=== PATIENT | male | born 1970 | race Caucasian/White ===

== ENCOUNTER 2021-01-27 08:00 | Outpatient (CLI) | payer OTHER | END 2021-01-27 23:59 | disposition home or self-care (01) | LOC: LAB.R 08:00 | PROVIDERS: ATTEND Physician Assistant | DX: J20.9 Acute bronchitis, unspecified (principal); Z20.822 Contact with and (suspected) exposure to COVID-19 ==

== ENCOUNTER 2021-08-11 16:44 | Outpatient (CLI) | payer OTHER | END 2021-08-11 16:45 | disposition home or self-care (01) | LOC: COV 16:44 | PROVIDERS: ATTEND Internal Medicine Gastroenterology | DX: Z01.812 Encounter for preprocedural laboratory examination (principal); Z20.822 Contact with and (suspected) exposure to COVID-19 ==

== ENCOUNTER 2021-11-14 15:00 | Outpatient (CLI) | payer OTHER ==
[2021-11-14 22:12] LABS: BILIRUBIN,URINE NEGATIVE (NEGATIVE); CLARITY,URINE CLEAR (CLEAR); GLUCOSE, URINE (UA) NEGATIVE (NEGATIVE); KETONES,URINE (UA) NEGATIVE (NEGATIVE); LEUKOCYTE ESTERASE, URINE NEGATIVE (NEGATIVE); NITRITE,URINE NEGATIVE (NEGATIVE); OCCULT BLOOD,URINE NEGATIVE (NEGATIVE); PH,URINE 5.5 PH (5.0-7.5); PROTEIN,URINE NEGATIVE (NEGATIVE); UROBILINOGEN,URINE 0.2 (NORMAL) E.U./dL (NORMAL)
[2021-11-14 22:44] LABS: BACTERIA,URINE Rare /HPF (None Seen); RBC,URINE None Seen /HPF (0-5); SQUAMOUS EPITHELIAL CELL,UR NONE SEEN (<= Few); WBC,URINE 0-3 /HPF (0-3)
== END 2021-11-14 23:59 | disposition home or self-care (01) ==
LOC: LAB.S 15:00
PROVIDERS: ATTEND Physician Assistant Medical
DX: N41.8 Other inflammatory diseases of prostate (principal); R30.9 Painful micturition, unspecified
CPT/HCPCS: 81001; 87086

== ENCOUNTER 2023-08-13 08:00 | Outpatient (CLI) | payer OTHER ==
--- NOTE | 2023-08-13 14:32 | XRAY Report ---
PROCEDURE: Knee 3 View RT INDICATIONS: SPRAIN TO RIGHT KNEE TECHNIQUE: 3 views of the knee(s) were acquired. COMPARISON: None. FINDINGS: Bones: No fractures or dislocations. No suspicious bony lesions. Soft tissues: Small knee joint effusion. No suspicious soft tissue calcifications or masses. IMPRESSION: Small knee joint effusion. No displaced fracture or significant degenerative change. Reviewed by: Black Neely on 08/13/2023 2:31 PM PST Approved by: Black Neely on 08/13/2023 2:31 PM PST Station ID: [id number]
== END 2023-08-13 23:59 | disposition home or self-care (01) ==
LOC: DI.S 08:00
PROVIDERS: ATTEND Physician Assistant Medical
DX: M25.461 Effusion, right knee (principal)

== ENCOUNTER 2023-08-20 08:00 | Outpatient (CLI) | payer OTHER ==
[2023-08-20 20:28] LABS: BILIRUBIN,URINE NEGATIVE (NEGATIVE); GLUCOSE, URINE (UA) NEGATIVE (NEGATIVE); KETONES,URINE (UA) NEGATIVE (NEGATIVE); LEUKOCYTE ESTERASE, URINE NEGATIVE (NEGATIVE); NITRITE,URINE NEGATIVE (NEGATIVE); OCCULT BLOOD,URINE NEGATIVE (NEGATIVE); PROTEIN,URINE NEGATIVE (NEGATIVE); UROBILINOGEN,URINE 0.2 (NORMAL) E.U./dL (NORMAL)
[2023-08-20 20:47] LABS: CLARITY,URINE CLEAR (CLEAR)
[2023-08-20 20:54] LABS: BACTERIA,URINE None Seen /HPF (None Seen); RBC,URINE None Seen /HPF (0-5); SQUAMOUS EPITHELIAL CELL,UR NONE SEEN (<= Few); WBC,URINE 0-3 /HPF (0-3)
== END 2023-08-20 23:59 | disposition home or self-care (01) ==
LOC: LAB.S 08:00
PROVIDERS: ATTEND Emergency Medicine
DX: N41.9 Inflammatory disease of prostate, unspecified (principal)
CPT/HCPCS: 81001; 87086

== ENCOUNTER 2023-09-15 09:45 | Outpatient (CLI) | payer OTHER ==
[2023-09-15 14:38] LABS: BASOPHILS # (AUTO) 0.1 10^3/uL (0.0-0.1); EOSINOPHILS # (AUTO) 0.2 10^3/uL (0.0-0.7); EOSINOPHILS % (AUTO) 4.2 %; HCT - HEMATOCRIT 42.6 % (42.0-52.0); HGB - HEMOGLOBIN 14.3 g/dL (14.0-18.0); LYMPHOCYTES # (AUTO) 1.4 10^3/uL (1.5-3.5); LYMPHOCYTES % (AUTO) 23.9 %; MEAN CORPUSCULAR HEMOGLOBIN 29.9 pg (27.0-31.0); MEAN CORPUSCULAR HGB CONC 33.6 g/dL (32.0-36.0); MEAN CORPUSCULAR VOLUME 88.9 fL (80.0-94.0); MONOCYTES # (AUTO) 0.5 10^3/uL (0.0-1.0); NEUTROPHILS # (AUTO) 3.6 10^3/uL (1.5-6.6); NEUTROPHILS % (AUTO) 61.7 %; PLT - PLATELET COUNT 177 10^3/uL (130-450); RED BLOOD COUNT 4.79 10^6/uL (4.70-6.10); RED CELL DISTRIBUTION WIDTH 12.8 % (12.0-15.0); WHITE BLOOD COUNT 5.8 x10^3/uL (4.8-10.8)
[2023-09-15 14:59] LABS: ALBUMIN 4.5 g/dL (3.2-5.5); ALBUMIN/GLOBULIN RATIO 1.7 (1.0-2.2); ALKALINE PHOSPHATASE 82 IU/L (42-121); ALT ALANINE AMINOTRANSFERASE 24 IU/L (10-60); AST ASPARTATE AMINOTRANSFERASE 20 IU/L (10-42); BILIRUBIN,TOTAL 0.5 mg/dL (0.2-1.0); BUN - BLOOD UREA NITROGEN 13 mg/dL (6-20); CALCIUM 9.7 mg/dL (8.5-10.3); CARBON DIOXIDE - CO2 31 mmol/L (21-32); CHLORIDE 103 mmol/L (101-111); CHOL/HDL RATIO 8.1 (<5.0); CHOLESTEROL 317 mg/dL; CREATININE 0.9 mg/dL (0.6-1.3); CRP - C-REACTIVE PROTEIN < 0.5 mg/dL (<0.5); GFR - MDRD 88 (>89); GLUCOSE 118 mg/dL (74-104); HDL CHOLESTEROL 39 mg/dL; LDL CHOLESTEROL,CALCULATED 242 mg/dL; LDL/HDL RATIO 6.2 (<3.6); POTASSIUM 4.1 mmol/L (3.5-4.5); SODIUM 139 mmol/L (135-145); TOTAL PROTEIN 7.2 g/dL (6.4-8.9); TRIGLYCERIDES 182 mg/dL (48-352); URIC ACID 6.8 mg/dL (4.4-7.6); VLDL CHOLESTEROL 36 mg/dL
[2023-09-15 15:03] LABS: THYROID STIMULATING HORMONE 1.96 uIU/mL (0.34-5.60)
[2023-09-15 19:37] LABS: RHEUMATOID FACTOR NEGATIVE (Negative)
[2023-09-15 19:53] LABS: ESTIMATED AVERAGE GLUCOSE 126 mg/dL (70-100)
[2023-09-16 18:07] LABS: ANTI-DNA (DS) AB QN <1 IU/mL (0-9)
[2023-09-17 16:07] LABS: ANTINUCLEAR ANTIBODIES IFA Negative (.)
[2023-09-17 18:08] LABS: CYCLIC CITRULLINATED PEP IGG/A 1 units (0-19)
== END 2023-09-15 09:46 | disposition home or self-care (01) ==
LOC: LAB.S 09:45
PROVIDERS: ATTEND Physician Assistant Medical
DX: R53.83 Other fatigue (principal); M25.50 Pain in unspecified joint; Z13.9 Encounter for screening, unspecified; N41.0 Acute prostatitis; N41.1 Chronic prostatitis
CPT/HCPCS: 36415; 80053; 80061; 83036; 83721; 84153; 84443; 84550; 85025; 85651; 86038; 86140; 86200; 86225; 86430

== ENCOUNTER 2023-10-06 08:58 | Outpatient (CLI) | payer OTHER | END 2023-10-06 08:59 | disposition home or self-care (01) | LOC: LAB.S 08:58 | PROVIDERS: ATTEND Urology | DX: R53.83 Other fatigue (principal); N41.9 Inflammatory disease of prostate, unspecified | CPT/HCPCS: 36415; 84403 ==

== ENCOUNTER 2023-11-17 07:58 | Outpatient (CLI) | payer OTHER | END 2023-11-17 07:59 | disposition home or self-care (01) | LOC: LAB.S 07:58 | PROVIDERS: ATTEND Physician Assistant Medical | DX: R53.83 Other fatigue (principal) | CPT/HCPCS: 36415; 82533; 84403 ==

== ENCOUNTER 2024-05-10 08:08 | Outpatient (CLI) | payer OTHER ==
[2024-05-10 09:01] LABS: THYROID STIMULATING HORMONE 3.49 uIU/mL (0.34-5.60)
== END 2024-05-10 08:09 | disposition home or self-care (01) ==
LOC: LAB 08:08
PROVIDERS: ATTEND Internal Medicine Endocrinology, Diabetes & Metabolism
DX: E29.1 Testicular hypofunction (principal); R53.82 Chronic fatigue, unspecified
CPT/HCPCS: 36415; 84403; 84439; 84443

== ENCOUNTER 2024-06-26 08:00 | Outpatient (CLI) | payer OTHER ==
--- NOTE | 2024-06-27 14:32 | XRAY Report ---
PROCEDURE: Knee 3V RT INDICATIONS: PAIN IN RIGHT KNEE TECHNIQUE: 3 views of the knee were acquired. COMPARISON: None. FINDINGS: Bones: No acute fractures or dislocations. No suspicious bony lesions. Soft tissues: Trace knee joint effusion. No suspicious soft tissue calcifications. Mild nonspecific prepatellar subcutaneous edema. IMPRESSION: No acute osseous abnormality. If there is clinical concern or persistent symptoms, additional imaging such as repeat radiographs or advanced imaging (e.g. CT, MRI) may be helpful for further evaluation. Reviewed by: Andres Andrea MD on 06/27/2024 2:30 PM PDT Approved by: Andres Andrea MD on 06/27/2024 2:30 PM PDT Station ID: [id number]
== END 2024-06-26 23:59 | disposition home or self-care (01) ==
LOC: DI.S 08:00
PROVIDERS: ATTEND Registered Nurse
DX: M25.561 Pain in right knee (principal)